=== PATIENT | male | born 1995 | race Caucasian/White ===

== ENCOUNTER → 2020-08-12 09:45 | Outpatient (CLI) | payer OTHER, SELFPAY | PROVIDERS: PCP Family Medicine; Referring Provider Family Medicine; Visit Provider Family Medicine | DX: Z03.818 Encounter for observation for suspected exposure to other biological agents ruled out (principal) | CPT/HCPCS: 87635; C9803; U0003 ==

== ENCOUNTER → 2021-07-14 | Outpatient (CLI) | payer OTHER, SELFPAY | END | disposition home or self-care (01) | LOC: LABSPEC 15:11 | PROVIDERS: PCP Family Medicine; Referring Provider Family Medicine; Visit Provider Family Medicine | DX: Z20.822 Contact with and (suspected) exposure to COVID-19 (principal) | CPT/HCPCS: 87635; U0005; U0003 ==

== ENCOUNTER → 2023-03-14 | Outpatient (CLI) | payer OTHER, SELFPAY ==
--- NOTE | 2023-03-14 09:45 | RAD_ITS ---
EXAMINATION: Double contrast esophagram. INDICATION: Dysphagia, reflux TECHNIQUE: Thick and thin barium oral contrast , gas bubbles, and barium pill were administered to the patient. Total Fluoroscopic Time: 9 seconds AND number of Fluoroscopic Images: 20 spot images. Radiation dosage index: 46.03 mGy COMPARISON: None. FINDINGS: No masses or strictures are identified. There is no hiatal hernia. The mucosal pattern is unremarkable. There is normal motility. Reflux was not elicited. Normal passage of the barium pill. RAD/Esophagus Dual Contrast IMPRESSION: Normal esophagram. Electronically Signed: Cole Priest MD at 13:28 EDT ,
== END | disposition home or self-care (01) ==
LOC: RAD 08:40
PROVIDERS: Referring Provider Otolaryngology; Visit Provider Otolaryngology
DX: R13.13 Dysphagia, pharyngeal phase (principal); K21.9 Gastro-esophageal reflux disease without esophagitis
CPT/HCPCS: 74221